=== PATIENT | female | born 1940 ===

== ENCOUNTER 2018-09-17 10:19 | Outpatient (CLI) | payer OTHER | END 2018-09-17 12:26 | disposition home or self-care (01) | LOC: RAD 10:19 | DX: M19.041 Primary osteoarthritis, right hand (principal); M19.042 Primary osteoarthritis, left hand ==

== ENCOUNTER 2021-01-07 03:48 | Inpatient (IN) | payer OTHER ==
[~2021-01-07] VITALS: Ht 177.8 cm; Wt 86.2 kg
[2021-01-07] MEDS ORDERED: CARDIZEM120 MG PO (04:34)
[2021-01-07] MEDS ORDERED: PLAVIX75 MG PO (04:34)
[2021-01-07] MEDS ORDERED: CARDIZEM CD240 MG PO (04:34)
[2021-01-07] MEDS ORDERED: CRESTOR5 MG PO (04:35)
[2021-01-07] MEDS ORDERED: TAMBOCOR150 MG PO (04:35)
[2021-01-11] MEDS ORDERED: CLOPIDOGREL BIS75 MG PO (09:21)
[2021-01-11] MEDS ORDERED: CARTIA XT240 MG PO (09:21)
[2021-01-11] MEDS ORDERED: FLECAINIDE ACET50 MG PO (09:21)
[2021-01-11] MEDS ORDERED: DILTIAZEM HCL120 MG PO (09:21)
[2021-01-11] MEDS ORDERED: POM (MEDICAMENTO EN PO (09:21)
== END 2021-01-11 11:04 | disposition home or self-care (01) | DRG 293 ==
LOC: ER 03:48 → SEC-K 20:16 → MEDI 22:55
PROVIDERS: ADMIT Internal Medicine; ATTEND Internal Medicine
PROC: 4A033R1 Measurement of Arterial Saturation, Peripheral, Percutaneous Approach (ICD-10-PCS; principal; 2021-01-07)
PROC: B24BZZZ Ultrasonography of Heart with Aorta (ICD-10-PCS; 2021-01-07)
PROC: 4A12X4Z Monitoring of Cardiac Electrical Activity, External Approach (ICD-10-PCS; 2021-01-08)
PROC: 4A02XM4 Measurement of Cardiac Total Activity, External Approach (ICD-10-PCS; 2021-01-10)
PROC: 3E073KZ Introduction of Other Diagnostic Substance into Coronary Artery, Percutaneous Approach (ICD-10-PCS; 2021-01-10)
DX: I11.0 Hypertensive heart disease with heart failure (principal); I50.9 Heart failure, unspecified; I48.0 Paroxysmal atrial fibrillation; Z79.01 Long term (current) use of anticoagulants; Z20.822 Contact with and (suspected) exposure to COVID-19; R77.8 Other specified abnormalities of plasma proteins
CPT/HCPCS: 70545

== ENCOUNTER 2021-08-09 08:00 | Outpatient (CLI) | payer OTHER ==
[~2021-08-09 08:00] MED LIST: CARDIZEM CD240 MG PO; CARDIZEM120 MG PO; CARTIA XT240 MG PO; CLOPIDOGREL BIS75 MG PO; CRESTOR5 MG PO; DILTIAZEM HCL120 MG PO; FLECAINIDE ACET50 MG PO; PLAVIX75 MG PO; POM (MEDICAMENTO EN PO; TAMBOCOR150 MG PO
== END 2021-08-09 08:30 | disposition home or self-care (01) ==
LOC: PPH VACUNA 08:00
PROVIDERS: ATTEND Emergency Medicine Pediatric Emergency Medicine
DX: Z23 Encounter for immunization (principal)